=== PATIENT | male | born 1950 | race Caucasian/White ===

== ENCOUNTER → 2018-02-08 | Outpatient (CLI) | payer OTHER, MEDICARE ==
[~2018-02-08] MED LIST: AMIO200T42 PO; AMLO10TA6 PO; ASPI-496 PO; ASPI-624 PO; ATOR10TA PO; ATOR20TA9 PO; CELE200C PO; CIPR500T87 PO; DIAZ5TAB PO; DOCU-131 PO; HYDR25TA6 PO; LISI40TA PO; METO50TA82 PO; NIFE60TA13 PO; ONDA4TAB10 PO; OXYC-302 PO; OXYC5CAP2 PO; PRAS10TA4 PO; RIVA20TA PO; TADA20TA PO; TADA5TAB2 PO; TRAM50TA2 PO; percocet PO
[2018-02-08 12:41] LABS: BASOPHILS # (AUTO) 0.03 x10^3/uL (0-0.1); BASOPHILS % (AUTO) 1 % (0-1); EOSINOPHILS # (AUTO) 0.12 x10^3/uL (0-0.4); EOSINOPHILS % (AUTO) 2 % (1-7); LYMPHOCYTES % (AUTO) 25 % (22-44); MD NO; MEAN CORPUSCULAR HEMOGLOBIN 31.4 pg (27.5-34.5); MEAN CORPUSCULAR HGB CONC 34.4 g/dL (33.2-36.2); MEAN CORPUSCULAR VOLUME 91.3 fL (81-97); MEAN PLATELET VOLUME 7.8 fL (7.4-10.4); MONOCYTES # (AUTO) 0.85 x10^3/uL (0.2-0.8); MONOCYTES % (AUTO) 13 % (2-9); NEUTROPHILS # (AUTO) 4.09 x10^3/uL (1.8-6.8); NEUTROPHILS % (AUTO) 60 % (42-75); PLATELET COUNT 232 x10^3/uL (130-400); RED BLOOD COUNT 5.34 x10^6/uL (4.38-5.82); RED CELL DISTRIBUTION WIDTH 14.6 % (9.4-14.8)
[2018-02-08 12:44] LABS: MICROSCOPIC NOT IND
[2018-02-08 12:46] LABS: CULTURE INDICATED? NO
[2018-02-08 12:51] LABS: INTERNATIONAL NORMALIZED RATIO 1.06 (0.93-1.1); PROTHROMBIN TIME 10.9 Seconds (9.6-11.5)
[2018-02-08 12:52] LABS: ALBUMIN 4.3 g/dL (3.4-5.0); ANION GAP 6 mmol/L (5-15); CALCIUM 10.5 mg/dL (8.5-10.1); CHLORIDE 108 mmol/L (98-107)
[2018-02-08 12:55] LABS: ALANINE AMINOTRANSFERASE 28 U/L (12-78); ALKALINE PHOSPHATASE 81 U/L (45-117); CREATININE 0.89 mg/dL (0.7-1.3); TOTAL PROTEIN 7.8 g/dL (6.4-8.2)
[2018-02-08 13:00] LABS: HEMOGLOBIN A1C 5.5 % (4.2-6.3)
== END | disposition home or self-care (01) ==
LOC: STAR 11:18
PROVIDERS: ATTEND Orthopaedic Surgery
DX: Z01.818 Encounter for other preprocedural examination (principal); M16.11 Unilateral primary osteoarthritis, right hip
CPT/HCPCS: 36415; 80053; 81003; 83036; 85025; 85610; 85730; 87081; 87806; 93005; G0475

== ENCOUNTER 2018-02-15 07:00 | Inpatient (IN) | payer OTHER, MEDICARE ==
[~2018-02-15] VITALS: Ht 180.3 cm; Wt 103.9 kg
[2018-02-15] MEDS ORDERED: EPINEPHRINE 1 MG/ML, 1ML ONE (07:27)
[2018-02-15] MEDS ORDERED: ROPIvacaine/PF 0.2%, 20 ML ONE (07:27)
[2018-02-15] MEDS ORDERED: KETOROLAC 60 MG/2 ML ONE (07:27)
[2018-02-15] MEDS ORDERED: TRANEXAMIC ACID 100 MG/ML, 10ML ONE ×4 (07:27→07:29)
[2018-02-15] MEDS ORDERED: FENTANYL PF 250 MCG/5ML ONE (10:49)
[2018-02-15] MEDS ORDERED: MIDAZOLAM 1 MG/ML, 2ML ONE (10:49)
[2018-02-15] MEDS ORDERED: PROPOFOL 10 MG/ML, 20ML ONE (10:50)
[2018-02-15] MEDS ORDERED: ROCURONIUM 10MG/ML,5ML ONE ×2 (10:50)
[2018-02-15] MEDS ORDERED: SODIUM CHLORIDE 0.9% PF 10ML ONE ×2 (10:51→13:45)
[2018-02-15] MEDS ORDERED: CEFAZOLIN 1,000 MG ONE ×2 (10:51)
[2018-02-15] MEDS ORDERED: GLYCOPYRROLATE 0.4 MG/2 ML, 2ML ONE (10:52)
[2018-02-15] MEDS ORDERED: NEOSTIGMINE 1 MG/ML, 10ML ONE (10:52)
[2018-02-15] MEDS ORDERED: LACTATED RINGERS 1,000 ML IV SCH (10:54)
[2018-02-15] MEDS ORDERED: ACETAMINOPHEN 500 MG TABLET PO ONE (11:00)
[2018-02-15] MEDS ORDERED: GABAPENTIN 300 MG CAPSULE PO ONE (11:00)
[2018-02-15] MEDS ORDERED: ONDANSETRON ODT 8 MG PO PRN (12:30)
[2018-02-15] MEDS ORDERED: LABETALOL 5MG/ML, 20ML IV PRN (12:30)
[2018-02-15] MEDS ORDERED: MEPERIDINE/PF 25MG/0.5ML IVPush PRN (12:30)
[2018-02-15] MEDS ORDERED: PROMETHAZINE 25 MG/ML, 1ML IV PRN (12:30)
[2018-02-15] MEDS ORDERED: OXYcodone 5 MG/5 ML ORAL.SOL UDC PO PRN (12:30)
[2018-02-15] MEDS ORDERED: PROMETHAZINE 25 MG/ML, 1ML IM PRN ×3 (12:30→13:00)
[2018-02-15] MEDS ORDERED: HYDROmorphone 1 MG/ML, 1ML IV PRN ×2 (12:30→13:00)
[2018-02-15] MEDS ORDERED: MORPHINE SULFATE 4 MG/ML, 1ML IVPush PRN (12:30)
[2018-02-15] MEDS ORDERED: ONDANSETRON 2MG/ML, 2ML IV PRN ×2 (12:30→13:00)
[2018-02-15] MEDS ORDERED: ACETAMINOPHEN 325 MG TABLET PO PRN (12:30)
[2018-02-15] MEDS ORDERED: hydrALAzine 20 MG/ML, 1ML IV PRN (12:30)
[2018-02-15] MEDS ORDERED: PHENYLEPHRINE 10 MG/ML ONE (12:52)
[2018-02-15] MEDS: D5%-0.45NACL+KCL 20MEQ 1,000 ML IV SCH ×2 (12:55→21:08)
[2018-02-15] MEDS ORDERED: ALUMINUM/MAG/SIMETHICONE 30 ML UDC PO PRN (13:00)
[2018-02-15] MEDS ORDERED: BISACODYL 10 MG SUPP PR PRN (13:00)
[2018-02-15] MEDS ORDERED: MAGNESIUM HYDROXIDE 8%, 30ML UDC PO PRN (13:00)
[2018-02-15] MEDS ORDERED: SENNA/DOCUSATE TABLET PO PRN (13:00)
[2018-02-15] MEDS ORDERED: PROMETHAZINE 12.5 MG SUPP PR PRN (13:00)
[2018-02-15] MEDS ORDERED: ONDANSETRON 4 MG TABLET PO PRN (13:00)
[2018-02-15] MEDS ORDERED: TRANEXAMIC ACID 1,000 MG in SODIUM CHLORIDE 0.9% 100 ML IVPB ONE (13:00)
[2018-02-15] MEDS ORDERED: EPHEDRINE 50 MG/ML, 1ML ONE (13:45)
[2018-02-15] MEDS ORDERED: ACETAMINOPHEN 650 MG/20.3 ML UDC ONE (14:55)
[2018-02-15] MEDS ORDERED: FENTANYL PF 100 MCG/2ML ONE (14:55)
[2018-02-15] MEDS ORDERED: OXYcodone 5 MG/5 ML ORAL.SOL UDC ONE (14:55)
[2018-02-15] MEDS: FENTANYL PF 100 MCG/2ML IV PRN ×2 (14:57→15:17)
[2018-02-15] MEDS: CEFAZOLIN PMX 1GM/50ML 50 ML IVPB SCH (18:45)
[2018-02-15] MEDS: DOCUSATE 100 MG CAPSULE PO SCH (20:18)
[2018-02-15] MEDS ORDERED: ATORVASTATIN 20 MG TABLET PO SCH (21:00)
[2018-02-15 21:12] VITALS: BP 121/74
[2018-02-15] MEDS: OXYcodone IR 5MG TABLET PO PRN (22:45)
[2018-02-15] MEDS: ACETAMINOPHEN 650 MG/20.3 ML UDC PO PRN (22:45)
[2018-02-15 23:24] VITALS: BP 115/60
[2018-02-16] MEDS: CEFAZOLIN PMX 1GM/50ML 50 ML IVPB SCH (03:22)
[2018-02-16] MEDS: ACETAMINOPHEN 650 MG/20.3 ML UDC PO PRN ×2 (03:25→07:34)
[2018-02-16] MEDS: OXYcodone IR 5MG TABLET PO PRN ×2 (03:25→07:34)
[2018-02-16 03:29] VITALS: BP 119/61
[2018-02-16] MEDS ORDERED: DEXAMETHASONE 4 MG/ML, 1ML IVPush SCH (06:00)
[2018-02-16] MEDS ORDERED: RIVAROXABAN 20 MG TABLET PO SCH (06:00)
[2018-02-16 07:56] VITALS: BP 126/74
[2018-02-16] MEDS: DOCUSATE 100 MG CAPSULE PO SCH (08:26)
[2018-02-16] MEDS: D5%-0.45NACL+KCL 20MEQ 1,000 ML IV SCH (08:27)
[2018-02-16] MEDS ORDERED: LISINOPRIL 20 MG TABLET PO SCH (09:00)
[2018-02-16] MEDS ORDERED: HYDROCHLOROTHIAZIDE 25 MG TABLET PO SCH (09:00)
[2018-02-16] MEDS ORDERED: METOPROLOL TARTRATE 50 MG TABLET PO SCH (09:00)
[2018-02-16] MEDS ORDERED: AMLODIPINE 10 MG TAB PO SCH (09:00)
[2018-02-16] MEDS ORDERED: TAMSULOSIN 0.4 MG CAP.ER.24H PO SCH (09:00)
[2018-02-16 09:33] VITALS: BP 116/71
[2018-02-16] MEDS ORDERED: KETOROLAC 30 MG/1 ML IV SCH (13:00)
== END 2018-02-16 11:45 | disposition home or self-care (01) | DRG 470 ==
LOC: ORIP 10:36 → 4NOR 16:01 → DCLOUNGE 02-16 11:25
PROVIDERS: ADMIT Orthopaedic Surgery; ATTEND Orthopaedic Surgery
PROC: 0SR906Z Replacement of Right Hip Joint with Oxidized Zirconium on Polyethylene Synthetic Substitute, Open Approach (ICD-10-PCS; principal; 2018-02-15 12:45)
DX: M16.11 Unilateral primary osteoarthritis, right hip (principal); I48.91 Unspecified atrial fibrillation
CPT/HCPCS: 36415; 85018; 86850; 86900; C1713; G0378; J0171; J0690; J1100; J1885; J2250; J2704; J2710; J2795; J3010; C1776; J2370; J3480; J7120

== ENCOUNTER → 2018-08-18 | Outpatient (CLI) | payer MEDICARE ==
[~2018-08-18] MED LIST changes: -AMLO10TA6 PO; +AMLO10TA8 PO; +ATOR20TA37 PO; -ATOR20TA9 PO
== END | disposition home or self-care (01) ==
LOC: CFH 10:46
PROVIDERS: ATTEND Internal Medicine Cardiovascular Disease
DX: I08.0 Rheumatic disorders of both mitral and aortic valves (principal); I25.10 Atherosclerotic heart disease of native coronary artery without angina pectoris; I48.0 Paroxysmal atrial fibrillation; I10 Essential (primary) hypertension; E78.5 Hyperlipidemia, unspecified; Z95.5 Presence of coronary angioplasty implant and graft; Z79.899 Other long term (current) drug therapy
CPT/HCPCS: 93306

== ENCOUNTER 2018-10-14 08:04 | Outpatient (CLI) | payer MEDICARE ==
[~2018-10-14 08:04] MED LIST changes: +REGADENOSON 0.4 MG/5 ML SYRINGE ONE
== END 2018-10-14 23:59 | disposition home or self-care (01) ==
LOC: CFH 08:04
PROVIDERS: ATTEND Nurse Practitioner Family
DX: I21.9 Acute myocardial infarction, unspecified (principal); I25.10 Atherosclerotic heart disease of native coronary artery without angina pectoris
CPT/HCPCS: 78452; 93017; A9502; J2785

== ENCOUNTER 2019-10-16 14:14 | Emergency (ER) | payer MEDICARE ==
[~2019-10-16] VITALS: Ht 180.3 cm; Wt 96.4 kg
[~2019-10-16 14:14] MED LIST changes: -REGADENOSON 0.4 MG/5 ML SYRINGE ONE
--- NOTE | 2019-10-16 14:39 | NUR ---
BIB EMS FROM . PT WITH CHEST TIGHTNESS X 2 DAYS, +SOB, NISHI HAND TINGLING TODAY. AT HR IN THE 40'S. PT ON ALL MONITORS, VSS, +A-FIB. NAD NOTED. PT AMB TO BATHROOM, URINE SAMPLE COLLECT. RTD TO ROOM W/O INCIDENT. DR. DELGADO AT BEDSIDE. CALL LIGHT W/I REACH
[2019-10-16] MEDS ORDERED: SODIUM CHLORIDE FLUSH 10ML SYR IVF ONE (15:00)
[2019-10-16 15:15] LABS: BASOPHILS # (AUTO) 0.03 x10^3/uL (0-0.1); BASOPHILS % (AUTO) 1 % (0-1); EOSINOPHILS # (AUTO) 0.13 x10^3/uL (0-0.4); EOSINOPHILS % (AUTO) 2 % (1-7); LYMPHOCYTES # (AUTO) 1.61 x10^3/uL (1-3.4); LYMPHOCYTES % (AUTO) 28 % (22-44); MD NO; MEAN CORPUSCULAR HEMOGLOBIN 31.7 pg (27.5-34.5); MEAN CORPUSCULAR HGB CONC 34.1 g/dL (33.2-36.2); MEAN CORPUSCULAR VOLUME 92.9 fL (81-97); MEAN PLATELET VOLUME 7.9 fL (7.4-10.4); MONOCYTES # (AUTO) 0.64 x10^3/uL (0.2-0.8); MONOCYTES % (AUTO) 11 % (2-9); NEUTROPHILS # (AUTO) 3.45 x10^3/uL (1.8-6.8); NEUTROPHILS % (AUTO) 59 % (42-75); PLATELET COUNT 189 x10^3/uL (130-400); RED BLOOD COUNT 4.93 x10^6/uL (4.38-5.82); RED CELL DISTRIBUTION WIDTH 14.1 % (9.4-14.8)
[2019-10-16 15:20] LABS: ALANINE AMINOTRANSFERASE 33 U/L (12-78); ALBUMIN 3.9 g/dL (3.4-5.0); ANION GAP 6 mmol/L (5-15); CALCIUM 9.8 mg/dL (8.5-10.1); CHLORIDE 109 mmol/L (98-107); CREATININE 1.01 mg/dL (0.7-1.3)
[2019-10-16 15:24] LABS: ALKALINE PHOSPHATASE 74 U/L (45-117); BILIRUBIN,TOTAL 0.8 mg/dL (0.2-1.0); TOTAL PROTEIN 7.1 g/dL (6.4-8.2); TROPONIN I < 0.015 ng/mL (0.000-0.045)
[2019-10-16 17:05] VITALS: BP 129/69
--- NOTE | 2019-10-16 17:15 | NUR ---
dr silva spoke with dr briceno.
== END 2019-10-16 17:46 | disposition home or self-care (01) ==
LOC: ED 14:56
DX: I48.20 Chronic atrial fibrillation, unspecified (principal); R07.9 Chest pain, unspecified; I10 Essential (primary) hypertension
CPT/HCPCS: 36415; 71045; 80053; 83735; 84484; 85025; 93005; 99285

== ENCOUNTER 2020-12-20 06:01 | Day surgery (SDC) | payer MEDICARE ==
[~2020-12-20] VITALS: Ht 180.3 cm; Wt 97.7 kg
[~2020-12-20 06:01] MED LIST changes: +AMLO-211 PO; -AMLO10TA8 PO; -LISI40TA PO; +LISI40TA9 PO; -OXYC-302 PO; +OXYC1TAB14 PO; +TAMS-11 PO
[2020-12-20] MEDS ORDERED: SODIUM CHLORIDE 0.9% 1,000 ML IV ONE (06:30)
[2020-12-20 06:37] VITALS: BP 149/95
== END 2020-12-20 09:36 | disposition home or self-care (01) ==
LOC: CACL 06:01
PROVIDERS: ATTEND Internal Medicine Cardiovascular Disease
DX: I48.0 Paroxysmal atrial fibrillation (principal); I34.0 Nonrheumatic mitral (valve) insufficiency; I10 Essential (primary) hypertension; I25.10 Atherosclerotic heart disease of native coronary artery without angina pectoris; E11.9 Type 2 diabetes mellitus without complications; Z20.822 Contact with and (suspected) exposure to COVID-19; Z79.01 Long term (current) use of anticoagulants; Z79.899 Other long term (current) drug therapy; Z95.5 Presence of coronary angioplasty implant and graft
CPT/HCPCS: 87635; 93312; 93325